=== PATIENT | female | born 1955 | race African-American/Black ===

== ENCOUNTER 2016-08-17 19:38 | Emergency (ER) | payer MEDICAID ==
[~2016-08-17] VITALS: Ht 170.2 cm; Wt 69.0 kg
[~2016-08-17 19:38] MED LIST: HYDR25TA
[2016-08-17] MEDS ORDERED: TRAMADOL 50MG TABLET PO ONE (21:15)
[2016-08-17 22:31] LABS: BASOPHILS % 1.1 % (0.0-2.0); EOSINOPHILS % 0.3 % (0.0-5.0); HEMATOCRIT. 37.4 % (36.0-48.0); HEMOGLOBIN. 11.9 g/dL (12.0-16.0); LYMPHOCYTES % 42.9 % (20.0-50.0); MEAN CORPUSCULAR HEMOGLOBIN 23.1 pg (28.0-32.0); MEAN CORPUSCULAR VOLUME 72.7 fL (81.0-99.0); MONOCYTES % 9.3 % (2.0-8.0); NEUTROPHILS % 46.4 % (40.0-76.0); PLATELET 163 x1000/uL (130-400); RED BLOOD CELL COUNT 5.14 mill/uL (4.2-5.4); RED CELL DISTRIBUTION WIDTH 15.8 % (11.6-14.6)
[2016-08-17 22:32] LABS: CHLORIDE 104 mEq/L (98-107)
[2016-08-17 22:36] LABS: PARTIAL THROMBOPLASTIN TIME 26.2 sec (24.0-34.0); PROTHROMBIN TIME 10.7 sec
[2016-08-17 22:42] LABS: CARBON DIOXIDE 28 mEq/L (21-32)
[2016-08-17 23:21] LABS: CLARITY URINE CLEAR (CLEAR); COLOR URINE YELLOW (YELLOW); GLUCOSE URINE NEGATIVE (NEGATIVE); KETONES URINE NEGATIVE (NEGATIVE); LEUKOCYTE ESTERASE URINE TRACE (NEGATIVE); NITRITE URINE NEGATIVE (NEGATIVE); OCCULT BLOOD URINE NEGATIVE (NEGATIVE); PROTEIN URINE NEGATIVE (NEGATIVE)
[2016-08-17 23:25] VITALS: BP 107/75
[2016-08-18 00:02] LABS: *AMPHETAMINES SCREEN URINE NEGATIVE (NEGATIVE); *BARBITURATES SCREEN URINE NEGATIVE (NEGATIVE); *BENZODIAZEPINES SCREEN URINE NEGATIVE (NEGATIVE); *COCAINE SCREEN URINE PRESUMTIVE POSITIVE (NEGATIVE); CANNABINOID URINE SCREEN NEGATIVE (NEGATIVE); METHADONE URINE SCREEN NEGATIVE (NEGATIVE); OPIATES URINE SCREEN NEGATIVE (NEGATIVE); PHENCYCLIDINE URINE SCREEN NEGATIVE (NEGATIVE)
== END 2016-08-18 00:13 | disposition home or self-care (01) ==
LOC: ER 20:39
DX: R06.00 Dyspnea, unspecified (principal); I10 Essential (primary) hypertension; R00.1 Bradycardia, unspecified; M25.552 Pain in left hip; H92.09 Otalgia, unspecified ear; I51.7 Cardiomegaly; F41.9 Anxiety disorder, unspecified; D64.9 Anemia, unspecified; R94.31 Abnormal electrocardiogram [ECG] [EKG]; F14.10 Cocaine abuse, uncomplicated; F17.210 Nicotine dependence, cigarettes, uncomplicated; Z71.6 Tobacco abuse counseling; Z88.1 Allergy status to other antibiotic agents; Z98.890 Other specified postprocedural states; M79.601 Pain in right arm
CPT/HCPCS: 36415; 71010; 73502; 80048; 80305; 81001; 83880; 85025; 85610; 85730; 93005; 99285; Z7610

== ENCOUNTER 2017-04-02 09:11 | Emergency (ER) | payer MEDICAID ==
[~2017-04-02] VITALS: Ht 170.2 cm; Wt 76.0 kg
[2017-04-02 09:28] VITALS: BP 124/88
== END 2017-04-02 12:07 | disposition home or self-care (01) ==
LOC: ER 10:15
DX: M79.672 Pain in left foot (principal); F17.200 Nicotine dependence, unspecified, uncomplicated; F14.10 Cocaine abuse, uncomplicated; I10 Essential (primary) hypertension; Z88.1 Allergy status to other antibiotic agents
CPT/HCPCS: 73630; 99284; Z7610

== ENCOUNTER 2019-11-14 11:31 | Emergency (ER) | payer BC, MEDICAID ==
[~2019-11-14] VITALS: Ht 170.2 cm; Wt 83.0 kg
[2019-11-14 11:45] VITALS: BP 120/86
[2019-11-14] MEDS ORDERED: PREDNISONE 20MG TABLET PO STA (12:08)
[2019-11-14] MEDS ORDERED: DIPHENHYDRAMINE 25MG CAPSULE PO ONE (12:15)
[2019-11-14] MEDS ORDERED: FAMOTIDINE 20MG TABLET PO ONE (12:15)
== END 2019-11-14 12:10 | disposition home or self-care (01) ==
LOC: ER 11:31
DX: L50.0 Allergic urticaria (principal); I10 Essential (primary) hypertension; F14.10 Cocaine abuse, uncomplicated; F17.210 Nicotine dependence, cigarettes, uncomplicated; T78.49XA Other allergy, initial encounter; X58.XXXA Exposure to other specified factors, initial encounter
CPT/HCPCS: 99284; J7512; Q0163

== ENCOUNTER 2020-11-28 16:59 | Inpatient (IN) | payer BC, MEDICAID ==
[~2020-11-28] VITALS: Ht 170.2 cm; Wt 85.8 kg
[~2020-11-28 16:59] MED LIST changes: +ASPI-1497 MT; -HYDR25TA; +ISOS20TA57 PO; +LIP40 MT; +METO25TA6 MT
[2020-11-28 17:57] LABS: BASOPHILS % 0.5 % (0.0-2.0); HEMATOCRIT. 37.3 % (36.0-48.0); HEMOGLOBIN. 11.8 g/dL (12.0-16.0); LYMPHOCYTES % 26.2 % (20.0-50.0); MEAN CORPUSCULAR HEMOGLOBIN 23.6 pg (28.0-32.0); MEAN CORPUSCULAR VOLUME 74.8 fL (81.0-99.0); MEAN PLATELET VOLUME 10.7 fl (7.4-10.4); NEUTROPHILS % 63.3 % (40.0-76.0); PLATELET 156 x1000/uL (130-400); RED BLOOD CELL COUNT 4.99 mill/uL (4.2-5.4); RED CELL DISTRIBUTION WIDTH 16.1 % (11.6-14.6)
[2020-11-28 17:58] LABS: CHLORIDE 105 mEq/L (98-107)
[2020-11-28] MEDS ORDERED: NITROGLYCERIN 0.4MG TABLET SL SL PRN (18:30)
[2020-11-28] MEDS ORDERED: ASPIRIN 325MG EC TABLET PO ONE (18:30)
[2020-11-29] VITALS: BP 138/79
[2020-11-29 00:15] VITALS: BP 138/79
[2020-11-29] MEDS ORDERED: ASPI-1497 PO (00:36)
[2020-11-29] MEDS ORDERED: TEMAZEPAM 15MG CAPSULE PO PRN (02:00)
[2020-11-29] MEDS ORDERED: ACETAMINOPHEN 325MG TABLET PO PRN (02:00)
[2020-11-29 04:00] VITALS: BP 116/79
[2020-11-29] MEDS ORDERED: PANTOPRAZOLE 40MG DR TABLET PO SCH (07:10)
[2020-11-29 08:00] VITALS: BP 143/93
[2020-11-29] MEDS ORDERED: CLOPIDOGREL 75MG TABLET PO SCH (09:00)
[2020-11-29] MEDS ORDERED: METOPROLOL TARTRATE 25MG TABLET PO SCH (09:00)
[2020-11-29] MEDS ORDERED: ENOXAPARIN 40MG/0.4ML SYR SUBCUT SCH (09:00)
[2020-11-29] MEDS ORDERED: ASPIRIN 81MG TABLET PO SCH (09:00)
[2020-11-29] MEDS ORDERED: ISOSORBIDE MONONITRATE 20MG TABLET PO SCH (09:00)
[2020-11-29 09:20] LABS: BASOPHILS % 0.2 % (0.0-2.0); EOSINOPHILS % 0.1 % (0.0-5.0); HEMATOCRIT. 37.8 % (36.0-48.0); HEMOGLOBIN. 11.7 g/dL (12.0-16.0); LYMPHOCYTES % 38.6 % (20.0-50.0); MEAN CORPUSCULAR HEMOGLOBIN 23.1 pg (28.0-32.0); MEAN CORPUSCULAR VOLUME 74.7 fL (81.0-99.0); MEAN PLATELET VOLUME 11.6 fl (7.4-10.4); MONOCYTES % 13.7 % (2.0-8.0); NEUTROPHILS % 47.4 % (40.0-76.0); PLATELET 163 x1000/uL (130-400); RED BLOOD CELL COUNT 5.06 mill/uL (4.2-5.4); RED CELL DISTRIBUTION WIDTH 15.9 % (11.6-14.6)
[2020-11-29 09:29] LABS: CHLORIDE 106 mEq/L (98-107)
[2020-11-29 09:36] LABS: LDL CHOLESTEROL 42 mg/dL (5-100)
[2020-11-29 09:38] LABS: HDL CHOLESTEROL 45 mg/dL (40-59)
[2020-11-29 09:40] LABS: CREATINE KINASE 73 IU/L (26-192)
[2020-11-29 09:41] LABS: CREATINE KINASE MB FRACTION < 1.0 ng/mL (0.5-3.6)
[2020-11-29] MEDS ORDERED: ATORVASTATIN CALCIUM 40MG TABLET PO SCH (21:00)
== END 2020-11-29 10:35 | disposition left against medical advice (07) | DRG 313 ==
LOC: ER 16:59 → 8WST 20:16 → ENRESERV 21:37
PROVIDERS: ADMIT Internal Medicine; ATTEND Internal Medicine
DX: R07.9 Chest pain, unspecified (principal); I25.10 Atherosclerotic heart disease of native coronary artery without angina pectoris; I10 Essential (primary) hypertension; Z53.29 Procedure and treatment not carried out because of patient's decision for other reasons; I25.2 Old myocardial infarction; Z86.73 Personal history of transient ischemic attack (TIA), and cerebral infarction without residual deficits; Z88.1 Allergy status to other antibiotic agents; Z79.899 Other long term (current) drug therapy; Z79.82 Long term (current) use of aspirin; Z82.49 Family history of ischemic heart disease and other diseases of the circulatory system
CPT/HCPCS: 36415; 71045; 80048; 80053; 80061; 82550; 82553; 82962; 83880; 84484; 85025; 93005; 99285; J1650

== ENCOUNTER 2021-10-08 10:23 | Emergency (ER) | payer BC, MEDICAID ==
[~2021-10-08] VITALS: Ht 165.1 cm; Wt 85.0 kg
[~2021-10-08 10:23] MED LIST changes: -ASPI-1497 MT; +ASPI-1497 PO
[2021-10-08 10:33] VITALS: BP 137/83
[2021-10-08] MEDS ORDERED: GABA-529 MT (15:06)
== END 2021-10-08 15:45 | disposition home or self-care (01) ==
LOC: ER 10:23
DX: M79.604 Pain in right leg (principal); E11.9 Type 2 diabetes mellitus without complications; I10 Essential (primary) hypertension; Z88.1 Allergy status to other antibiotic agents; Z98.890 Other specified postprocedural states
CPT/HCPCS: 73552; 99283

== ENCOUNTER 2022-01-05 07:54 | Emergency (ER) | payer BC, MEDICAID ==
[~2022-01-05] VITALS: Ht 170.2 cm; Wt 82.0 kg
[~2022-01-05 07:54] MED LIST changes: +GABA-529 MT
[2022-01-05 08:00] VITALS: BP 123/89
[2022-01-05] MEDS ORDERED: BENZ100C86 MT (10:29)
== END 2022-01-05 10:36 | disposition home or self-care (01) ==
LOC: ER 07:54
DX: J06.9 Acute upper respiratory infection, unspecified (principal); E11.9 Type 2 diabetes mellitus without complications; I10 Essential (primary) hypertension; Z88.1 Allergy status to other antibiotic agents; Z79.82 Long term (current) use of aspirin; Z79.899 Other long term (current) drug therapy
CPT/HCPCS: 93005; 99283